=== PATIENT | female | born 1975 | race Caucasian/White ===

== ENCOUNTER 2024-05-20 11:38 | Emergency (ER) | payer OTHER, SELFPAY ==
--- NOTE | ~2024-05-20 | XR_ITS ---
EXAMINATION: [id number]_CR DATE: 05/20/2024 12:14 INDICATION: Right knee injury and pain. TECHNIQUE: 2 views of right knee were obtained. COMPARISON: None. FINDINGS: Alignment is normal. No fracture. There is mild osteoarthritis of medial and lateral compar tments and moderate osteoarthritis of patellofemoral compartment. There is a small knee joint effusio n. IMPRESSION: 1. Moderate right knee osteoarthritis. 2. Small right knee joint effusion. Reviewed, dictated and finalized at location A. ER OPERATOR
--- NOTE | ~2024-05-20 | XR_ITS ---
EXAMINATION: XR ankle RT min 3V DATE: 05/20/2024 12:14 INDICATION: Right ankle injury. TECHNIQUE: 4 views of right ankle were obtained. COMPARISON: None. FINDINGS: Alignment is normal. There is an oblique fracture of distal fibula with medial aspect of th e fracture line at the level of the tibial plafond. The distal fracture fragment demonstrates 1 mm po sterolateral displacement. There is mild osteoarthritis of talonavicular joint. There is an enthesoph yte of posterior aspect of calcaneal tuberosity. IMPRESSION: 1. Oblique fracture of distal fibula. Reviewed, dictated and finalized at location A. RATION PLANT MECHANIC
[2024-05-20 11:40] VITALS: BP 120/76; PULSE 79; RESP 18; TEMP 36; O2SAT 100
--- NOTE | 2024-05-20 12:29 | ED_ITS ---
HPI - Extremity Injury (Lower) General Chief Complaint: Extremity Injury, Lower Stated Complaint: fell and twisted right knee and ankle Time Seen by Provider: 05/20/24 12:29 Source: patient Limitations: no limitations History of Present Illness HPI Narrative: 49 YEARS OLD WHITE FEMALE CAME TO THE ED BY PRIVATE CAR COMPLAINING OF RIGHT ANKLE AND RIGHT KNEE PAIN AFTER FALLING DOWN 2 STEPS YESTERDAY MORNING. SHE DENIES OTHER INJURIES. Related Data Home Medications Medication Instructions Recorded Confirmed alprazolam 0.5 mg tablet 0.5 mg PO BID 11/28/23 fluoxetine 40 mg capsule (Prozac) 40 mg PO QAM 11/28/23 grayzp-jmztkxsy-uksctib 1 cap PO TID 11/28/23 12,000-38,000-60,000 unit capsule,delayed rel (Creon) lisinopril 20 mg tablet 20 mg PO DAILY 11/28/23 rosuvastatin 20 mg tablet 20 mg PO DAILY 11/28/23 Allergies Allergy/AdvReac Type Severity Reaction Status Date / Time Penicillins Allergy Mild Unknown Verified 11/28/23 09:43 Review of Systems Review of Systems: All systems reviewed & are unremarkable except as noted in HPI and below PMFSH Past Medical History Medical History Anemia Anxiety Chronic pancreatitis Depression Fatigue Hyperlipidemia Family History Family History Mother Hypertension Cerebrovascular accident Father Hypertension Substance abuse Social History Social History Smoking status: Current every day smoker Alcohol intake: never Substance use: never Exam Narrative: GENERAL APPEARANCE: WELL-DEVELOPED, WELL-NOURISHED SKIN: NORMAL COLOR HEAD: NORMOCEPHALIC, NONTRAUMATIC NECK: SUPPLE, NONTENDER CHEST AND RESPIRATORY: AIRWAY PATENT, NO RESPIRATORY DISTRESS, NO ACCESSORY MUSCLE USE HEART: REGULAR RATE/RHYTHM ABDOMEN: SOFT, NONTENDER, NO ORGANOMEGALY, QUIET BOWEL SOUNDS VASCULAR: NORMAL PERIPHERAL PULSES, NORMAL CAPILLARY REFILL. MUSCULOSKELETAL: RIGHT ANKLE AND FOOT EXAM SHOWED BRUISES LATERALLY, SLIGHT LIMITED RANGE OF MOTION OF THE RIGHT ANKLE, SLIGHT DIFFUSE SWELLING. RIGHT KNEE EXAM SHOWED DIFFUSE TENDERNESS ANTERIORLY SLIGHTLY SWOLLEN OTHERWISE NO DEFORMITY NEUROLOGIC: ALERT AND ORIENTED ?3, BOARDING MOTHER IS NORMAL TESTED, NO GROSS MOTOR DEFICIT Course Vital Signs Vital signs: Vital Signs Temperature 36.0 C L 12/08/24 11:40 Pulse Rate 79 05/20/24 11:40 Respiratory Rate 18 05/20/24 11:40 Blood Pressure 120/76 05/20/24 11:40 Pulse Oximetry 100 05/20/24 11:40 Oxygen Delivery Room Air 05/20/24 11:40 Temperature 36.0 C L 05/20/24 11:40 Pulse Rate 79 05/20/24 11:40 Respiratory Rate 18 05/20/24 11:40 Blood Pressure 120/76 05/20/24 11:40 Pulse Oximetry 100 05/20/24 11:40 Oxygen Delivery Room Air 05/20/24 11:40 MDM - Extremity Injury (Lower) MDM Narrative Medical decision making narrative: RIGHT ANKLE, RIGHT KNEE PAIN AFTER A FALL YESTERDAY PHYSICAL EXAMINATION SHOWING QUITE A BIT OF BRUISES AT THE RIGHT ANKLE AND FOOT LATERALLY DIFFERENTIAL DIAGNOSIS CONTUSION VERSUS FRACTURE X-RAY OF THE RIGHT ANKLE SHOWED DISTAL FIBULAR FRACTURE, RIGHT KNEE SHOWED SLIGHT EFFUSION DISCHARGED ON SPLINT, ORTHOPEDIC FOLLOW-UP. Differential Diagnosis Differential diagnosis: Likely other ( ABOVE) Imaging Data Radiologist's impression: Impressions Ankle X-Ray 05/20/24 12:15 IMPRESSION: 1. Oblique fracture of distal fibula. Knee X-Ray 05/20/24 12:16 IMPRESSION: 1. Moderate right knee osteoarthritis. 2. Small right knee joint effusion. Critical Care Time Critical Care Time Critical Care Time: No Discharge Plan Discharge Clinical Impression: Ankle fracture, right Patient Disposition: Home, Self-Care Condition: Stable Instructions: Ankle Fracture (DC) Additional Instructions: Return if symptoms are worsening , call DR FRAGOSO for appointment, take Tylenol, IBUPROFEN as as needed for aches and pain, continue home medications. KEEP RIGHT FOOT ELEVATED, AVOID PUTTING WEIGHT ON THE RIGHT FOOT, CRUTCHES, Prescriptions: No Action alprazolam 0.5 mg tablet 0.5 mg PO BID fluoxetine [Prozac] 40 mg capsule 40 mg PO QAM Creon 12,000-38,000 -60,000 unit capsule,delayed release(/EC) 1 cap PO TID Rx Instructions: administer with meals and/or snacks rosuvastatin 20 mg tablet 20 mg PO DAILY lisinopril 20 mg tablet 20 mg PO DAILY Follow-up/Referrals: Glenroy Fragoso MD [Physician] - 05/21/24 Jesus Bean MD [Primary Care Provider] - Stand Alone Forms: Work/School Release IP
[2024-05-20 13:44] VITALS: BP 132/80; PULSE 82; RESP 16; TEMP 36.6; O2SAT 100
--- NOTE | 2024-05-20 14:28 | PC.NURSE ---
splint and PMS inspected by ERP
== END 2024-05-20 14:29 | disposition home or self-care (01) ==
PROVIDERS: Emergency Provider Emergency Medicine; PCP Family Medicine
DX: S82.431A Displaced oblique fracture of shaft of right fibula, initial encounter for closed fracture (principal); M25.461 Effusion, right knee; F17.210 Nicotine dependence, cigarettes, uncomplicated; D64.9 Anemia, unspecified; F41.9 Anxiety disorder, unspecified; F32.A Depression, unspecified; E78.5 Hyperlipidemia, unspecified; W10.9XXA Fall (on) (from) unspecified stairs and steps, initial encounter
CPT/HCPCS: 29515; 73560; 73610; 99284

== ENCOUNTER 2024-09-18 12:38 | Outpatient (CLI) | payer OTHER, SELFPAY ==
[2024-09-18 13:31] LABS: Vitamin D 25 Hydroxy 25.8 ng/mL
--- OUTSIDE RECORDS SUMMARY | 2024-09-18 13:43 | XMS_ITS | CONTINUITY OF CARE DOCUMENT ---
Author Name mendez simms Address Unknown Organization [facility] Address [address] [place] [address] Phone [phone] Care Team Providers Care Bereavement Program Coordinator Name Role Phone Bruce TRAN, Kurtis Taylor Unavailable [phone] TIFFANY LEE MD Unavailable TIFFANY LEE MD Unavailable [phone] PROBLEMS Condition Status Date Provider Notes Palpitations active Salome Kendall Family History of CVA or Stroke: active ? Richard Barrera MD Family History of Hypertension: active ? Thelma Barrera MD Hypertension active ? Kurtis Barrera MD Tobacco use quit active Kurtis Barrera MD Tobacco abuse active Kurtis Barrera MD HTN essential active Kurtis Barrera MD ENCOUNTERS Date Type Provider Location Encounter Diag nosis - In-person encounter Office Visit Kurtis Barrera MD [place] [facility] - In-person encounter Office Visit Kurtis Barrera MD [facility] Family History of CVA or Stroke:Family History of Hypertension:Hyperte nsionTobacco use quitTobacco abuseHTN essential VITAL SIGNS Date Observation Value Provider Body Mass Index (Ratio) 39.50 kg/m2 Thelma Barrera MD blood pressure, resting Yes Matilda Davila blood pressure, diastolic 93 mm[Hg] Verna Davila blood pressure, systolic 137 mm[Hg] Meghan Davila oxygen saturation, oximetry 92 % Tony Davila respiratory rate E&M 18 /min Bradley Davila pulse rate 80 /min Tony baltazar weight E&M 223 [lb_av] Tony baltazar height E&M 63 [in_i] Tony baltazar Body Mass Index (Ratio) 37.55 kg/m2 Thelma Barrera MD blood pressure, cuff size regular Ke latesha Forte blood pressure, diastolic 102 mm[Hg] Ke latesha Forte blood pressure, systolic 177 mm[Hg] Faith Forte oxygen saturation, oximetry 95 % Bryanna Forte respiratory rate E&M 16 /min Bryanna isaacs pulse rate 97 /min Bryanna bush weight E&M 212 [lb_av] Bryanna rileyer height E&M 63 [in_i] Bryanna bush ALLERGIES Allergy Name Onset Date Reaction Criticality Status PCN Low Criticality active HISTORY OF MEDICATION USE Medication Status Instructions Dates Provider Indications Com ments TOPROL XL 50 MG ORAL TABLET EXTENDED RELEASE 24 HOUR active ONE TAB DAILY Rose Cole NP If taking 50mg daily makes you more fatigued, inform us and go back to 25mg daily. TOPROL XL 25 MG ORAL TABLET EXTENDED RELEASE 24 HOUR completed ONE TAB DAILY - Rose Cole NP ADVIL CAPSULE active as needed Bryanna Forte SOCIAL HISTORY Date Observation Value Provider number of grandchildren Kurtis Cole NP social history reviewed E&M revi ewed - no changes required Rose Cole NP social history E&M S moking History: P atient currently smokes every day. Judith chavarria has been counseled to quit. Rose Cole NP smoking/tobacco cess ation, patient education and counseling yes Tony Davila alcohol use no Tony baltazar number of years as a smoker 30 a Tony Davila smoking history, tot al pack/day 1 ppd Tony Davila cigarette use yes Tony schwartz smoking status Current every day smoker Vinicius Davila smoking/tobacco cess ation, patient education and counseling yes Kurtis Barrera MD social history E&M S moking History: Judith chavarria currently smokes every day. Kurtis Barrera MD social history reviewed E&M revi ewed - no changes required Kurtis Barrera MD alcohol use no Bryanna Mary bush number of years as a smoker 30 a Bryanna Forte smoking history, tot al pack/day 1 ppd Bryanna Reanna cigarette use yes Bryanna Kyleigh wong smoking status Current every day smoker Izabella leong Reanna FAMILY HISTORY Family Member Condition Father Negative FH of Coron camelia Artery Disease Mother Family History of Hy pertension: Mother Family History of CV A or Stroke: INSURANCE PROVIDERS Payer name Policy type / Coverage type [facility] [employer] [place] [employer] Medicaid [id number] ADVANCE DIRECTIVES Name Date DISCUSSED - NO DECISION MADE TREATMENT PLAN Date Name Performer Cardiology:Had initi ally resolved. Recently returned due to increased stress. Increased smoking and caffeine intake, since stress. Will increase Toprol XL to 50mg daily. Her updated medication list for this problem includes: Toprol Xl 50 Mg Tb24 (Metoprolol succinate) ..... One tab daily Rose Cole NP Cardiology:Attempted to cut down. Currently smoking more due to increased stress. Cessation advised. Rose Cole NP [facility] Follow up :Markedly miproved, most likely related to caffeine intake and nicotine, both being stimulants. She has agreed to reduce smoking down to 10 cigarettes per day in three months, currently smoking 15 H er updated medication list for this problem includes: Toprol Xl 25 Mg Tb24 (Metoprolol succinate) ..... One tab daily Toprol Xl 25 Mg Tb24 (Metoprolol succinate) ..... One tab daily Kurtis Barrera MD [facility]iology Hospital Follow up :Will start her on a low dose of beta diana toprol xl 25 mg daily. H er updated medication list for this problem includes: Toprol Xl 25 Mg Tb24 (Metoprolol succinate) ..... One tab daily Toprol Xl 25 Mg Tb24 (Metoprolol succinate) ..... One tab daily Kurtis Barrera MD HISTORY OF PROCEDURES Procedure Date Procedure Name Provider Procedure Notes S tatus EKG Kurtis Barrera MD completed SNOMED-CT: 664019529 [id number] Current Medications Documented Kurtis Barrera MD completed EKG Kurtis Barrera MD completed SNOMED-CT: 543131015 545203 Current Medications Documented Kurtis Barrera MD completed Event Monitor Salome Kendall completed
--- OUTSIDE RECORDS SUMMARY | 2024-09-18 13:43 | XMS_ITS | Clinical Summary ---
Author Organization [facility] Address [address] [place] [address] Care Team Providers Care Graphics Coordinator Name Role Phone Unavailable Primary Care Provider Unavailabl e Source Comments [facility],non-[facility] Affiliates and Associated Physician Practices is amultiple site organization consisting of ambulatory clinics and hospital sitesin [place], [place], [place] and [place]. This disclosure is being madepursuant to the Care Everywhere program and may not contain all information available regarding this patient. Last updated 18.[facility] Social History Tobacco Use Types Packs/Day Years Used Date Smoking Tobacco: Never Assessed Sex and Gender Information Value Date Recorded Sex Assigned at Not on file Gender Identity Not on file Sexual Orientation Not on file Plan of Treatment Health Maintenance Due Date Last Done Comments COLOGUARD (AGES 45-75) - COL ON CA SCREENING 1973 COLON MONITORING 1973 COLONOSCOPY - COLON CA SCREENING 1973 CT COLONOGRAPHY - COLON CA SCREENING 1973 Colorectal Cancer Screening 1973 FIT - COLON CA SCREENING 1973 FLEX SIG - COLON CA SCREENING 1973 LIPID TESTING 1973 MAMMOGRAM 1973 HIV SCREENING 1988 HEPATITIS C SCREENING 03/18/1991 DTAP/TDAP/TD VACCINES (1 - Tdap) 1992 HEPATITIS B VACCINE (1 of 3 - 19+ 3-dose series) 1992 PNEUMOCOCCAL VACCINE 50+ (1 of 1 - PCV) 2023 ZOSTER VACCINE (1 of 2) 2023 COVID-19 VACCINE ( - 2023-2 5 season) 2024 DEPRESSION SCREENING 06/13/2024 INFLUENZA VACCINE (Season Ended) 2025 HIB VACCINE Aged Out No longer eligi ble based on patient's age to complete this topic HPV VACCINE Aged Out No longer eligi ble based on patient's age to complete this topic MENINGOCOCCAL (Group B) VACC INE SHARED DECISION-MAKING Aged Out No longer eligibl e based on patient's age to complete this topic MENINGOCOCCAL GROUPS A/C/Y/W VACCINE Aged Out No longer eligible b ased on patient's age to complete this topic
== END 2024-09-18 12:39 | disposition home or self-care (01) ==
LOC: ANHLAB 12:39
PROVIDERS: PCP Family Medicine; Visit Provider Orthopaedic Surgery
DX: E55.9 Vitamin D deficiency, unspecified (principal)
CPT/HCPCS: 36415; 82306

== ENCOUNTER 2025-06-06 08:20 | Emergency (ER) | payer OTHER, SELFPAY ==
--- NOTE | ~2025-06-06 | XR_ITS ---
XR hip RT 2V w AP pelvis 06/06/2025 10:51 INDICATION: Right hip pain pain PROCEDURE: 3 views right hip including AP pelvis COMPARISON: No prior studies for comparison. FINDINGS: Fracture, dislocation or subluxation is not identified. The soft tissues appear within normal limits. No foreign bodies are identified. IMPRESSION: 1: NO ACUTE BONE OR JOINT ABNORMALITY IDENTIFIED. Reviewed, dictated and finalized at location O. CAL ATTENDANT
--- NOTE | ~2025-06-06 | CT_ITS ---
EXAMINATION: CT lumbar spine wo con DATE: 06/06/2025 10:48 INDICATION: Back pain after fall TECHNIQUE: Computed tomography (CT) of the lumbar spine was performed without intravenous contrast. The dose-length product was 1099.52 mGy-cm. COMPARISON: None FINDINGS: There is a mild age-indeterminate superior endplate compression deformity of L2. There is disc narrowing and endplate sclerosis at L5-S1. There is mild-moderate multilevel facet hypertrophy at L4-5 and L5-S1. There are symmetric degenerative changes of the sacroiliac joints. No evidence for s pondylolisthesis. Mild dextrocurvature of the lumbar spine. IMPRESSION: 1. Mild age-indeterminate superior endplate compression deformity of L2. 2: Moderate lumbar spondylosis. Reviewed, dictated and finalized at location O. CULTURAL EXTENSION AGENT
[2025-06-06 08:31] VITALS: BP 168/116; PULSE 83; RESP 18; TEMP 37.1; O2SAT 100
--- NOTE | 2025-06-06 10:33 | ED_ITS ---
HPI - Back Pain/Injury General Chief Complaint: Back Pain/Injury Stated Complaint: fall, back pain Time Seen by Provider: 06/06/25 10:01 History of Present Illness HPI Narrative: Patient is a 50-year-old female who presents to the ER with right hip and back pain. She reports yesterday she slipped on some leaves, her foot slid through her shoe, and she landed on her right hip. Patient reports today she woke up with significant back pain. She reports she has been taking Tylenol without much relief. Patient endorses a history of chronic back pain and pancreatitis. She denies any saddle anesthesia, numbness /tingling in her extremities, or recent fevers. Related Data Home Medications ?Medication ?Instructions ?Recorded ?Confirmed ?Last Taken ?Type alprazolam 0.5 mg tablet 0.5 mg PO BID 11/28/2309/18 Unknown History fluoxetine 40 mg capsule (Prozac) 40 mg PO QAM 4 09/18/24 Unknown History cvkcar-myjkagpv-pnqtsja(pork)12,000-38,000-60,000 1 ca p PO TID 11/28/23 09/18/24 Unknown History unit capsule,del rel (Creon) lisinopril 20 mg tablet 20 mg PO DAILY 11/28/2302/04 Unknown History rosuvastatin 20 mg tablet 20 mg PO DAILY 11/28/2302/04 Unknown History Allergies Allergy/AdvReac Type Severity Reaction Status Date / Time Penicillins Allergy Mild Unknown Verified 06/06/25 08:33 Review of Systems Review of Systems: All systems reviewed & are unremarkable except as noted in HPI and below PMFSH Past Medical History Medical History Fracture of distal end of right fibula Fatigue Chronic pancreatitis Anxiety Depression Hyperlipidemia Anemia Surgical History Surgical History Hx of tonsillectomy History of x2 Family History Family History Mother Hypertension Cerebrovascular accident Father Hypertension Substance abuse Social History Social History Social History: caffeine use Smoking status: Current every day smoker Tobacco type: cigarettes and e-cigarettes/vaping Alcohol intake: never Substance use: current Substance use type: marijuana Occupation/Education: occupation Additional occupation/education comments: [employer] Gender identity (if verbalized by the patient): Female Exam Narrative: GENERAL: Well appearing, well-nourished, non-toxic, in no acute distress. HEAD: Normocephalic, atraumatic. NECK: Supple. No adenopathy, no masses. RESPIRATORY: Airway patent, respirations nonlabored. Clear to auscultation bilaterally, no rales, rhonchi, wheezing. CARDIOVASCULAR: Regular rate and rhythm without murmurs, rubs, or gallops. Peripheral pulses 2+ and equal bilaterally. ABDOMINAL: Soft, nontender, nondistended, no hepatosplenomegaly. Normoactive BS. MUSCULOSKELETAL: Moves all extremities. Strength/ROM intact without gross deformities. + pain with straight leg test right greater than left, no pain with palpation to spine SKIN: Warm, dry, normal color. No rashes. NEURO: A&O X3. Speech clear. Cranial nerves II-XII intact. No ataxic movements. PSYCHIATRIC: Appropriate mood and affect. Normal interaction. Course Vital Signs Vital signs: Vital Signs Temperature 37.1 C 06/06/25 08:31 Pulse Rate 83 06/06/25 08:31 Respiratory Rate 18 06/06/25 08:31 Blood Pressure 168/116 H 06/06/25 08:31 Pulse Oximetry 100 06/06/25 08:31 Oxygen Delivery Room Air 06/06/25 08:31 Temperature 37.1 C 06/06/25 08:31 Pulse Rate 71 06/06/25 12:32 Respiratory Rate 15 06/06/25 12:32 Blood Pressure 159/95 H 06/06/25 12:32 Pulse Oximetry 94 06/06/25 12:32 Oxygen Delivery Room Air 06/06/25 11:18 MDM MDM Narrative Medical decision making narrative: Patient is a 50-year-old female who presents to the ER with right hip and back pain. She reports yesterday she slipped on some leaves, her foot slid through her shoe, and she landed on her right hip. Patient reports today she woke up with significant back pain. She reports she has been taking Tylenol wi thout much relief. Patient endorses a history of chronic back pain and pancreatitis. She denies any saddle anesthesia, numbness /tingling in her extremities, or recent fevers. Imaging Ordered: CT lumbar spine, right hip x-ray Medications Ordered: Toradol 60 mg IM, prednisone 40 mg p.o., lidocaine patch Results: Pt's CT scan indicates 1. Mild age-indeterminate superior endplate compression deformity of L2. 2: Moderate lumbar spondylosis. Pt's x-ray indicates NO ACUTE BONE OR JOINT ABNORMALITY IDENTIFIED. Diagnosis: back pain, right hip pain Consults: neurosurgery (outpatient), Dr Reddy Patient Education/Shared MDM: Results of lab work and imaging shared with patient. She endorses improvement of symptoms following medication administration stating it took the edge off. Patient strongly advised to follow-up with neurosurgery for further evaluation. She will be discharged home with a prescription for lidocaine patch, steroids and muscle relaxants. Strict return precautions provided. Patient verbalized understanding and is in agreement with plan. Vital signs stable at time of discharge. All questions answered. Differential Diagnosis Differential Diagnosis: Compression fracture, hip fracture, lumbar radiculopathy, acute on chronic back pain Lab Data [facility] Lab Attestation statement: I personally reviewed the patient's lab results. Labs: Lab Results 06/06/25 Range/Units 12:19 Urine Color Yellow (Yellow) Urine Appearance Clear (Clear) Urine pH 8.0 (5.0-9.0) Ur Specific [place] 1.019 (1.001-1.035) Urine Protein 1+ H (Negative) mg/dL Urine Glucose (UA) Negative (Negative) mg/dL Urine Ketones Negative (Negative) mg/dL Ur Blood (Man) Negative (Negative) Urine Nitrate Negative (Negative) Urine Bilirubin Negative (Negative) Urine Urobilinogen 1.0 (<2.0) mg/dL Leukocyte Esterase Rfl Negative (Negative) GAMALIEL/UL Urine RBC 0-2 (0-2) /hpf Urine WBC 0-5 (0-3) /hpf Ur Squamous Epith Cells None seen (Few) /hpf Urine Bacteria None seen /hpf Urine Casts 0-2 Imaging Data Attestation: I personally reviewed and interpreted this imaging study as follows: Radiologist's impression: ITS Impressions Lumbar Spine CT 06/06/25 10:53 IMPRESSION: 1. Mild age-indeterminate superior endplate compression deformity of L2. 2: Moderate lumbar spondylosis. Hip/Pelvis X-Ray 06/06/25 10:55 IMPRESSION: 1: NO ACUTE BONE OR JOINT ABNORMALITY IDENTIFIED. Discharge Plan Discharge Clinical Impression: Strain of lumbar region, Acute on chronic back pain, Fall, Acute right hip pain, Defect of endplate of vertebra Patient Disposition: Home Condition: Stable Instructions: Antibiotic Form, Acute Low Back Pain (ED) Additional Instructions: Please return to the ER with any worsening symptoms. Follow-up with neurosurgery for further evaluation. Take all medications as prescribed, including regularly scheduled medications. You may use muscle relaxants, lidocaine patches, Tylenol, and steroids for pain control. Patient Language: Serbian Prescriptions: New cyclobenzaprine 5 mg tablet 5 mg PO TID PRN (Reason: muscle spasm) Qty: 20 0RF prednisone 20 mg tablet 20 mg PO BID Qty: 10 0RF lidocaine 5 % adhesive patch,medicated 2 patch topical DAILY Qty: 30 0RF Rx Instructions: leave on most painful area for up to 12 hrs No Action alprazolam 0.5 mg tablet 0.5 mg PO BID fluoxetine [Prozac] 40 mg capsule 40 mg PO QAM Creon 12,000-38,000 -60,000 unit capsule,delayed release(DR/EC) 1 cap PO TID Rx Instructions: administer with meals and/or snacks rosuvastatin 20 mg tablet 20 mg PO DAILY lisinopril 20 mg tablet 20 mg PO DAILY Follow-up/Referrals: Jesus Bean MD [Primary Care Provider, Family Practice] Norman Reddy MD [Physician, Neurosurgery] Stand Alone Forms: Work/School Release IP Time of Disposition: 13:15
[2025-06-06] MEDS: LIDOCAINE 5% PATCH 1 PATCH TRANSDERM (11:12)
[2025-06-06] MEDS: KETOROLAC (*BKC) 60 MG/2 ML VIAL IM (11:12)
[2025-06-06 11:18] VITALS: BP 174/106; PULSE 73; RESP 17; O2SAT 99
[2025-06-06 12:01] VITALS: BP 163/100; PULSE 78; RESP 12; O2SAT 99
[2025-06-06 12:16] VITALS: BP 161/103; PULSE 74; RESP 16; O2SAT 98
[2025-06-06 12:28] LABS: Add Urine Microscopic? YES; Appearance Urine Clear (Clear); Glucose Urine UA Negative (Negative); Leukocyte Esterase Ur Negative LEU/UL (Negative); Nitrate Urine Negative (Negative); Non Pathogenic Casts 0-2; Specific Grav Ur 1.019 (1.001-1.035)
[2025-06-06 12:32] VITALS: BP 159/95; PULSE 71; RESP 15; O2SAT 94
== END 2025-06-06 13:23 | disposition home or self-care (01) ==
PROVIDERS: Emergency Provider Registered Nurse; PCP Family Medicine
DX: S39.012A Strain of muscle, fascia and tendon of lower back, initial encounter (principal); M25.551 Pain in right hip; W01.0XXA Fall on same level from slipping, tripping and stumbling without subsequent striking against object, initial encounter; K86.1 Other chronic pancreatitis; E78.5 Hyperlipidemia, unspecified; F17.210 Nicotine dependence, cigarettes, uncomplicated; F17.290 Nicotine dependence, other tobacco product, uncomplicated; G89.29 Other chronic pain
CPT/HCPCS: 72131; 73502; 81001; 96372; 99284; A9270; J1885; J7512